=== PATIENT | female | born 1965 ===

== ENCOUNTER 2016-12-06 01:57 | Emergency (ER) | payer MEDICAID ==
[2016-12-06 01:58] VITALS: BMI 21.9
[2016-12-06] MEDS ORDERED: Sodium Chloride 0.9% 1,000 ML IV STA (02:20)
[2016-12-06] MEDS ORDERED: levETIRAcetam 500 MG in Sodium Chloride 0.9% 100 ML IVPB ONE (02:23)
[2016-12-06 02:33] LABS: BASO % 0.5 % (0.0-2.0); EOS # 0.2 K/uL (0.0-0.7); EOS % 3.3 % (0.0-4.0); HEMATOCRIT 34.6 % (34.0-47.0); LYMPH # 2.1 K/uL (1.0-4.3); LYMPH % 34.5 % (20.0-40.0); MEAN CELL VOLUME 89.2 fl (81.0-99.0); MEAN CORPUSCULAR HEMOGLOBIN 29.2 pg (27.0-31.0); MEAN CORPUSCULAR HGB CONC 32.7 g/dL (33.0-37.0); MEAN PLATELET VOLUME 9.1 fl (7.2-11.7); MONO # 0.6 K/uL (0.0-0.8); MONO % 9.8 % (0.0-10.0); NEUT # 3.2 K/uL (1.8-7.0); NEUT % 51.9 % (50.0-75.0); NRBC % 0.2 % (0.0-0.0); RED CELL DISTRIBUTION WIDTH 13.4 % (11.5-14.5); WHITE BLOOD COUNT 6.1 K/uL (4.8-10.8)
[2016-12-06 02:44] LABS: ALB/GLOB RATIO 1.2 (1.0-2.1); ALCOHOL SERUM < 10 mg/dl (0-10); ALKALINE PHOSPHATASE 64 U/L (38-126); ALT/SGPT 40 U/L (9-52); AST/SGOT 35 U/L (14-36); BILIRUBIN,TOTAL 0.1 mg/dl (0.2-1.3); BLOOD UREA NITROGEN 12 mg/dl (7-17); CALCIUM 7.8 mg/dL (8.4-10.2); CARBON DIOXIDE 17 mmol/L (22-30); CHLORIDE 109 mmol/L (98-107); GFR AFRICAN-AMERICAN > 60; GLUCOSE,RANDOM 116 mg/dL (65-105); MAGNESIUM 1.9 MG/DL (1.6-2.3); POTASSIUM 3.9 MMOL/L (3.6-5.0); SODIUM 139 mmol/l (132-148); TOTAL PROTEIN 6.4 G/DL (6.3-8.2)
[2016-12-06 02:49] LABS: CARBAMAZEPINE < 3.0 ug/mL (4.0-12.0)
[2016-12-06 02:53] LABS: LITHIUM < 0.2 MMOL/L (0.6-1.2)
--- NOTE | 2016-12-06 02:53 | ED PDOC ---
HPI: Seizure <Cely Arciniega - Last Filed: 12/06/16 03:35> <Jared óGmez - Last Filed: 12/06/16 06:20> Time Seen by Provider: 12/06/16 02:18 Chief Complaint (Nursing): Seizure Additional Complaint(s): 51yo F with PMHx seizure, hypotension (Baseline BP 80s/40s), HLD, Breast cancer c/o seizure ~1hr ago. history per pt spouse as pt not responsive to questioning. Pt had witnessed seizure by spouse for estimated 10min and post ictal state afterwards. Was eating, behaving normally earlier today. Has been on the same seizure med x4 years, carbamazepine 100mg AM and 200mg PM. Last visit to neuro Dr. Page x3 months ago with no change in dosage. Has been having increased frequency of seizures from e6iugcts to q3 months for more than 1 year. Last ED visit for seizure 3 months ago. Compliant with meds. Not on lamotrigine. Allergy to phenytoin. PCP: Dr. Macias (Cely Arciniega) Supervising Attending Note <Cely Arciniega - Last Filed: 12/06/16 03:35> - Attestation: I have personally seen and examined this patient.: Yes I have fully participated in the care of the patient.: Yes I have reviewed all pertinent clinical information, including history, physical exam and plan: Yes <Jared Gómez - Last Filed: 12/06/16 06:20> - Notes: Notes:: Pt. arrives post-ictal, s/p 2 ativan; pt. hypotensive but this is her baseline as per chart review of previous vital sign documentations, pt. now awake, admits to noncompliance to medications, informed the dangers of noncompliance. patient now awake and alert, normal neuro exam. will d/c home. (Jared Gómez) Past Medical History Reviewed: Historical Data, Nursing Documentation, Vital Signs - Medical History PMH: Hypercholesterolemia, Malignancy (breast cancer currently taking tamoxifen) , Seizures (last 2014) Denies: HIV, Chronic Kidney Disease - Family History Family History: States: Unknown Family Hx <Cely Arciniega - Last Filed: 12/06/16 03:35> <Jared Gómez - Last Filed: 12/06/16 06:20> Vital Signs: Last Vital Signs Temp 99.9 F H 12/06/16 02:02 Pulse 105 H 12/06/16 02:02 Resp 18 12/06/16 02:02 BP Pulse Ox 100 12/06/16 03:37 - Home Medications Home Medications: Ambulatory Orders Medication Instructions Recorded Aspirin [Aspirin EC] 81 mg PO DAILY #30 ect 02/21/16 Atenolol [Tenormin] 25 mg PO DAILY 05/27/16 Atorvastatin [Lipitor] 20 mg PO HS 05/27/16 Carbamazepine [Carbamazepine] 200 mg PO QAM 05/27/16 Carbamazepine [Carbamazepine] 400 mg PO QPM 05/27/16 Isosorbide Mononitrate [Imdur] 30 mg PO DAILY 05/27/16 Lamotrigine [Lamictal] 50 mg PO BID 05/27/16 Lamotrigine [Lamictal] 150 mg PO BID #30 tab 05/27/16 Nitroglycerin [Nitrostat] 0.4 mg SL Q5MIN PRN 05/27/16 Tamoxifen Citrate [Tamoxifen 20 mg PO DAILY 05/27/16 Citrate] - Allergies Allergies/Adverse Reactions: Allergies Allergy/AdvReac Type Severity Reaction Status Date / Time phenytoin sodium AdvReac RASH Verified 12/06/16 02:02 [From Dilantin] phenytoin sodium extended AdvReac RASH Verified 12/06/16 02:02 [From Dilantin] Review of Systems Review Of Systems: ROS cannot be obtained secondary to pt's inabilty to answer questions. <Cely Arciniega - Last Filed: 12/06/16 03:35> Physical Exam - Reviewed Nursing Documentation Reviewed: Yes Vital Signs Reviewed: Yes - Physical Exam Appears: Positive for: Non-toxic Head Exam: Positive for: ATRAUMATIC Skin: Positive for: Warm, Dry Eye Exam: Positive for: PERRL. Negative for: Scleral icterus Neck: Positive for: Supple, Trachea Midline Cardiovascular/Chest: Positive for: Regular Rate, Rhythm. Negative for: Murmur Respiratory: Positive for: Normal Breath Sounds. Negative for: Crackles Gastrointestinal/Abdominal: Positive for: Bowel Sounds, Soft Extremity: Positive for: Capillary Refill. Negative for: Pedal Edema DTR - Knee (R): 2+ DTR - Knee (L): 2+ Neurologic/Psych: Positive for: Other (+R Babinski, +L Quinn's). Negative for : Alert, Oriented <Clarenceg - Last Filed: 12/06/16 03:35> - Laboratory Results Result Diagrams: 12/06/16 02:25 12/06/16 02:25 - ECG O2 Sat by Pulse Oximetry: 100 < - Last Filed: 12/06/16 03:35> - Laboratory Results Result Diagrams: 12/06/16 02:25 12/06/16 02:25 <Jared Gómez - Last Filed: 12/06/16 06:20> Medical Decision Making <g - Last Filed: 12/06/16 03:35> <Jared Gómez - Last Filed: 12/06/16 06:20> Medical Decision Makin DDx status epilepticus, seizure, hypoglycemia, med noncompliance CBC no leukocytosis CMP low level: dilantin, phenytoin, carbamazepine, valproic acid, lithium, EtOH LA 6.4 EKG sinus tachy, my interp CXR no consolidation, my interp CT head wo cont keppra 500mg IV x1 NS 1L 500cc/hr UA BS [id number] Reassessment Pt Awake, Oriented to person and year, not place CT head no acute pathology seizure d/t med noncompliance most likely urine tox WNL (,) Disposition <g - Last Filed: 12/06/16 03:35> - Patient ED Disposition Is Patient to be Admitted: No - Disposition Disposition: Routine/Home Disposition Time: 06:19 <Jared Gómez - Last Filed: 12/06/16 06:20> - Clinical Impression Clinical Impression: Seizure disorder - Disposition Referrals: Debra Macias MD [Staff Provider] - Condition: STABLE Instructions: Epilepsy (ED), Recurrent Seizures in Adults (ED) Print Language: BAHAMIAN
[2016-12-06 02:55] LABS: VALPROIC ACID < 10.0 ug/mL (50.0-100.0)
[2016-12-06 03:10] LABS: RBC URINE < 1 /hpf (0-3); URINE BACTERIA RARE (<OCC); URINE BILIRUBIN NEGATIVE (NEGATIVE); URINE BLOOD NEGATIVE (NEGATIVE); URINE COLOR STRAW (YELLOW); URINE GLUCOSE (UA) NEG (Normal); URINE KETONE NEGATIVE (NEGATIVE); URINE LEUKOCYTE ESTERASE NEG Leu/uL (Negative); URINE PROTEIN 30 mg/dL (NEGATIVE); URINE UROBILINOGEN 0.2-1.0 mg/dL (0.2-1.0); WBC URINE < 1 /hpf (0-5)
--- NOTE | 2016-12-06 03:11 | RAD ---
EXAM: XR Chest, 1 View CLINICAL HISTORY: 51 years old, female; Signs and symptoms; Other: Seizure TECHNIQUE: Frontal view of the chest. EXAM DATE/TIME: Exam ordered 12/06/2016 2:19 AM COMPARISON: No relevant prior studies available. FINDINGS: Lungs: Cannot exclude right hilar prominence, and bilateral prominence of the markings which could reflect an element of pulmonary vascular congestion. Confirmation on a film with better positioning is recommended. Pleural space: Unremarkable. No pneumothorax. Heart: Unremarkable. No cardiomegaly. Mediastinum: See above. Bones/joints: Unremarkable. Other findings: The present film is severely rotated. IMPRESSION: No definite acute aspiration, concern for central and possibly right hilar prominence which could reflect pulmonary vascular congestion. Advise followup with a film with better positioning.
--- NOTE | 2016-12-06 03:17 | CT ---
EXAM: CT Head Without Intravenous Contrast CLINICAL HISTORY: 51 years old, female; Signs and symptoms; Other: Seizure; Additional info: Seizure, +l flores's, +r babinski TECHNIQUE: Axial computed tomography images of the head/brain without intravenous contrast. This CT exam was performed using one or more of the following dose reduction techniques: automated exposure control, adjustment of the mA and/or kV according to patient size, and/or use of iterative reconstruction technique. Coronal and sagittal reformatted images were created and reviewed. EXAM DATE/TIME: Exam ordered 12/06/2016 2:45 AM COMPARISON: No relevant prior studies available. FINDINGS: Artifacts: Artifact limits evaluation. Brain: Periventricular hypoattenuation favored to be related to chronic small vessel ischemic changes. There is diffuse though mild asymmetry of the CSF spaces which are more prominent on the right than the left noting that adrian-white differentiation is maintained. Comparison to previous is recommended to confirm whether this is a stable finding. No hemorrhage. Ventricles: Unremarkable. No ventriculomegaly. Bones/joints: Unremarkable. No acute fracture. Soft tissues: Unremarkable. Sinuses: Unremarkable as visualized. No acute sinusitis. Mastoid air cells: Unremarkable as visualized. No mastoid effusion. Other findings: Noted that the patient has had previous imaging of the head which is not presently available for review. IMPRESSION: Diffuse asymmetry , with cerebral atrophy apparently greater right than left hemisphere , please compare to previous. No acute intracranial hemorrhage. No abnormality suspicious for acute stroke by noncontrast head CT. If there is clinical suspicion for stroke, please note that other modalities are considered to be more sensitive than noncontrast head CT. Noted that the patient has had previous imaging of the head which is not presently available for review. Please compare on-site.
[2016-12-06 06:28] VITALS: BP 94/55; PULSE 80; RESP 22; TEMP 98.7; O2SAT 96
--- NOTE | 2016-12-07 07:42 | CARD ---
APPROVED REPORT EKG Measurement Heart [id number] <Conclusion> Sinus tachycardia Low voltage QRS Borderline ECG
== END 2016-12-06 07:45 | disposition home or self-care (01) ==
LOC: H.ER 01:57
DX: G40.909 Epilepsy, unspecified, not intractable, without status epilepticus (principal); E78.00 Pure hypercholesterolemia, unspecified; Z79.82 Long term (current) use of aspirin; Z85.3 Personal history of malignant neoplasm of breast

== ENCOUNTER 2017-03-20 18:14 | Emergency (ER) | payer MEDICAID ==
[2017-03-20 18:14] VITALS: BMI 21.9
[2017-03-20 18:21] VITALS: TEMP 99.4
[2017-03-20] MEDS ORDERED: Sodium Chloride 0.9% 1,000 ML IV STA (18:32)
[2017-03-20 18:35] VITALS: BP 143/73; PULSE 110; RESP 16; O2SAT 100
--- NOTE | 2017-03-20 18:37 | ED PDOC ---
HPI: Seizure Time Seen by Provider: 03/20/17 18:21 Chief Complaint (Nursing): Seizure Chief Complaint (Provider): Seizure History Per: Patient History/Exam Limitations: clinical condition Additional Complaint(s): Pt. witnessed sz at home and ems called. Pt. was seizing witnessed by EMS. Pt. stopped seizing briefly and brought in the ambulance. Pt. then had another seizure in the ambulance and given ativan 2mg by EMS. Pt. responsive to pain and stimulation with withdrawing. Not verbally communicative. Past Medical History Vital Signs: Last Vital Signs Temp 99.4 F 03/20/17 18:17 Pulse 113 H 03/20/17 18:17 Resp 18 03/20/17 18:17 BP 102/46 L 03/20/17 18:17 Pulse Ox 100 03/20/17 18:17 - Medical History PMH: Hypercholesterolemia, Malignancy (breast cancer currently taking tamoxifen) , Seizures (last 2014) Denies: HIV, Chronic Kidney Disease - Family History Family History: States: Unknown Family Hx - Home Medications Home Medications: Ambulatory Orders Medication Instructions Recorded Aspirin [Aspirin EC] 81 mg PO DAILY #30 ect 02/21/16 Atenolol [Tenormin] 25 mg PO DAILY 05/27/16 Atorvastatin [Lipitor] 20 mg PO HS 05/27/16 Carbamazepine [Carbamazepine] 200 mg PO QAM 05/27/16 Carbamazepine [Carbamazepine] 400 mg PO QPM 05/27/16 Isosorbide Mononitrate ER [Imdur] 30 mg PO DAILY 05/27/16 Lamotrigine [Lamictal] 50 mg PO BID 05/27/16 Lamotrigine [Lamictal] 150 mg PO BID #30 tab 05/27/16 Nitroglycerin [Nitrostat] 0.4 mg SL Q5MIN PRN 05/27/16 Tamoxifen Citrate [Tamoxifen 20 mg PO DAILY 05/27/16 Citrate] - Allergies Allergies/Adverse Reactions: Allergies Allergy/AdvReac Type Severity Reaction Status Date / Time phenytoin sodium AdvReac RASH Verified 12/06/16 02:02 [From Dilantin] phenytoin sodium extended AdvReac RASH Verified 12/06/16 02:02 [From Dilantin] Review of Systems Review Of Systems: ROS cannot be obtained secondary to pt's inabilty to answer questions. Physical Exam - Reviewed Nursing Documentation Reviewed: Yes Vital Signs Reviewed: Yes - Physical Exam Appears: Positive for: Uncomfortable Head Exam: Positive for: ATRAUMATIC, NORMAL INSPECTION, NORMOCEPHALIC Skin: Positive for: Normal Color, Warm, DRY Eye Exam: Positive for: PERRL ENT: Positive for: Normal ENT Inspection. Negative for: Pharyngeal Erythema Neck: Positive for: Supple Cardiovascular/Chest: Positive for: Regular Rate, Rhythm. Negative for: Edema Respiratory: Positive for: CNT, Normal Breath Sounds Gastrointestinal/Abdominal: Positive for: Soft. Negative for: Tenderness Back: Positive for: Normal Inspection. Negative for: L CVA Tenderness, R CVA Tenderness Extremity: Negative for: Tenderness, Pedal Edema Neurologic/Psych: Positive for: Other (only withdraws to pain). Negative for: Alert, Oriented - ECG ECG: Positive for: Interpreted By Me, Viewed By Me ECG Rhythm: Positive for: Normal QRS, Normal ST Segment, Sinus Rhythm O2 Sat by Pulse Oximetry: 100 Pulse Ox Interpretation: Normal - Progress ED Course And Treament: 1839: Per records, pt. here multiple times for seizures. Pt. last visit was found to be noncompliant with meds. Is suppose to be on carbamazapine at that time. Will get labs and imaging. Dr. Gómez to take over care. Disposition - Clinical Impression Clinical Impression: Seizure - Patient ED Disposition Is Patient to be Admitted: Transfer of Care - Disposition Disposition: Transfer of Care Disposition Time: 18:40 Condition: FAIR Patient Signed Over To: Jared Gómez
[2017-03-20 19:00] LABS: BASO % 0.4 % (0.0-2.0); EOS # 0.1 K/uL (0.0-0.7); EOS % 1.1 % (0.0-4.0); LYMPH % 36.4 % (20.0-40.0); MEAN CELL VOLUME 89.9 fl (81.0-99.0); MEAN CORPUSCULAR HGB CONC 33.4 g/dL (33.0-37.0); MEAN PLATELET VOLUME 9.2 fl (7.2-11.7); MONO # 0.5 K/uL (0.0-0.8); MONO % 9.5 % (0.0-10.0); NEUT # 2.9 K/uL (1.8-7.0); NEUT % 52.6 % (50.0-75.0); RED CELL DISTRIBUTION WIDTH 13.6 % (11.5-14.5); WHITE BLOOD COUNT 5.4 K/uL (4.8-10.8)
[2017-03-20 19:13] LABS: ALB/GLOB RATIO 1.3 (1.0-2.1); ALCOHOL SERUM < 10 mg/dl (0-10); ALKALINE PHOSPHATASE 50 U/L (38-126); ALT/SGPT 34 U/L (9-52); AST/SGOT 31 U/L (14-36); BILIRUBIN,TOTAL 0.3 mg/dl (0.2-1.3); BLOOD UREA NITROGEN 8 mg/dl (7-17); CARBON DIOXIDE 14 mmol/L (22-30); CHLORIDE 106 mmol/L (98-107); GFR AFRICAN-AMERICAN > 60; GLUCOSE,RANDOM 113 mg/dL (65-105); POTASSIUM 3.4 MMOL/L (3.6-5.0); SODIUM 139 mmol/l (132-148); TOTAL PROTEIN 7.5 G/DL (6.3-8.2)
[2017-03-20 19:27] LABS: PARTIAL THROMBOPLASTIN TIME 27.5 Seconds (25.6-37.1)
--- NOTE | 2017-03-20 20:15 | ED PDOC ---
- Laboratory Results Result Diagrams: 03/20/17 18:35 03/20/17 18:35 - ECG O2 Sat by Pulse Oximetry: 100 (RA) Pulse Ox Interpretation: Normal Medical Decision Making Medical Decision Making: Time: 1899 --Patient endorsed from Dr Ibrahim to me. --pending CT Scan, reevaluation, and disposition. Time: 20:41 --Head CT FINDINGS: Brain: Mild atrophy, RIGHT greater than LEFT. No intracranial hemorrhage. No mass. Few scattered foci of decreased attenuation within periventricular/subcortical white matter. No definite edema. Ventricles: No hydrocephalus. Bones/joints: No acute fracture. Soft tissues: Unremarkable. Sinuses: No acute sinusitis. Mastoid air cells: No mastoid effusion. Orbits: Unremarkable as visualized. IMPRESSION: 1. Nonspecific white matter changes. Acute infarction may be CT occult within first 24 hours. If a focal deficit persists, consider followup CT or MRI for further evaluation. 9PM: Saw and examined patient at bedside. States that she has been compliant with her lamictal (does not take carbamazepine anymore). States she was recently taking 25mg of IR lamictal 6x a day but three weeks ago Dr. Canela (her neurologist) changed it to 100mg IR BID. States that today she ate mushrooms at lunch that occasional trigger her seizures. She states that 10 mins after eating the mushrooms, she had her typical seizure aura which is dizziness and then had a partial seizure which involved shaking of the left side, but she remembers everything and not have LOC. She states that 10 minutes after the first (Which lasted 1-2 min) she had another and her daughter called EMS. In EMS she had a third and EMS administered ativan 2mg IV. When I spoke with her, she was sligthly groggy but fully capable of giving history and participating in exam. I spoke with Dr. Vargas, on staff neurologist, who recommends close f/ u w/ her neurologist and changing IR lamictal to ER lamictal because she probably is not having adequate levels because of the IR tablets (lab cannot check lamictal level as it is a send out). I offered the patient admission for observation but she says she feels well enough to go home. Spoke with Suha- pharmacist- who verified patient is on IR and not ER lamictal, also verified that they do indeed have 100mg ER lamictal in stock as our pharmacy does not carry it. Patient is awake and back to baseline, just states she feels "tired" and wants to go home and sleep. Will be driven by . Evelina understands the dire importance of close f/u w/ her neurologist on Wednesday, patient states she will followup on Wednesday morning and will go to [facility] and start taking ER lamictal. Will d/c home. Explained to patient and to return to ER immediately at the onset of aura or seizure activity or any other concerning symptoms. Scribe Attestation: Documented by Camryn Panda, acting as a scribe for Jared Gómez MD. Provider Scribe Attestation: All medical record entries made by the Scribe were at my direction and personally dictated by me. I have reviewed the chart and agree that the record accurately reflects my personal performance of the history, physical exam, medical decision making, and the department course for this patient. I have also personally directed, reviewed, and agree with the discharge instructions and disposition. Disposition - Clinical Impression Clinical Impression: Seizure - POA Present On Arrival: None - Disposition Disposition: Routine/Home Disposition Time: 21:00 Condition: IMPROVED Prescriptions: Lamotrigine [Lamotrigine ER] 100 mg PO BID #30 [email or web address] Instructions: Lamotrigine (By mouth), Epilepsy (ED) Forms: [employer] (Belarusian)
[2017-03-20] MEDS ORDERED: levETIRAcetam 500 MG in Sodium Chloride 0.9% 100 ML IVPB ONE (20:37)
--- NOTE | 2017-03-20 20:41 | CT ---
EXAM: CT Head Without Intravenous Contrast CLINICAL HISTORY: 51 years old, female; Signs and symptoms; Other: Seizures; Patient HX: Breast ca. Rt lumpectomy. Stroke; Additional info: Seizure TECHNIQUE: Axial computed tomography images of the head/brain without intravenous contrast. All CT scans at this facility use one or more dose reduction techniques, viz.: automated exposure control; ma/kV adjustment per patient size (including targeted exams where dose is matched to indication; i.e. head); or iterative reconstruction technique. Coronal and sagittal reformatted images were created and reviewed. COMPARISON: CT - HEAD W/O CONTRAST 12/06/2016 2:52:44 AM FINDINGS: Brain: Mild atrophy, RIGHT greater than LEFT. No intracranial hemorrhage. No mass. Few scattered foci of decreased attenuation within periventricular/subcortical white matter. No definite edema. Ventricles: No hydrocephalus. Bones/joints: No acute fracture. Soft tissues: Unremarkable. Sinuses: No acute sinusitis. Mastoid air cells: No mastoid effusion. Orbits: Unremarkable as visualized. IMPRESSION: 1. Nonspecific white matter changes. Acute infarction may be CT occult within first 24 hours. If a focal deficit persists, consider followup CT or MRI for further evaluation.
--- NOTE | 2017-03-20 22:24 | RAD ---
HISTORY: seizures COMPARISON: No prior. FINDINGS: LUNGS: No active pulmonary disease. PLEURA: No significant pleural effusion identified, no pneumothorax apparent. CARDIOVASCULAR: Normal. OSSEOUS STRUCTURES: No significant abnormalities. VISUALIZED UPPER ABDOMEN: Normal. OTHER FINDINGS: None. IMPRESSION: No active disease.
--- NOTE | 2017-03-21 09:26 | CARD ---
APPROVED REPORT EKG Measurement Heart [id number] <Conclusion> Sinus tachycardia Otherwise normal ECG
== END 2017-03-20 22:12 | disposition home or self-care (01) ==
LOC: H.ER 18:14
DX: G40.909 Epilepsy, unspecified, not intractable, without status epilepticus (principal); Z85.3 Personal history of malignant neoplasm of breast
CPT/HCPCS: 70450; 71010; 80053; 80156; 80299; 80320; 80324; 80345; 80346; 80349; 80353; 80358; 80361; 81025; 82550; 82948; 83605; 83992; 84484; 85025; 85610; 85730; 93005; 99285; J7040